=== PATIENT | male | born 2005 | race Caucasian/White ===

== ENCOUNTER 2025-03-31 15:39 | Emergency (ER) | payer MEDICAID, OTHER, SELFPAY ==
[~2025-03-31 15:39] MED LIST: Iopamidol 300 61% 100 ML VIAL FS ONE
[2025-03-31] MEDS ORDERED: Ketorolac Tromethamine 30 MG (1 mL) VIAL ONE (16:49)
[2025-03-31 17:30] LABS: ALT (SGPT) 12 U/L (Less than 45); AST (SGOT) 24 U/L (11-34); Albumin 4.8 g/dL (3.1-4.5); Alkaline Phosphatase 87 U/L (40-110); Anion Gap 14 mmol/L (10-20); BUN (Urea Nitrogen) 12 mg/dL (8.9-20.6); Bilirubin, Total 1.1 mg/dL (0.3-1.2); Calc. Creatinine Clearance 0 mL/min (70-130); Calcium 9.6 mg/dL (7.8-10.44); Carbon Dioxide 31 mmol/L (22-29); Chloride 100 mmol/L (98-107); Globulin 2.7 g/dL (2.4-3.5); Glucose 93 mg/dL (70-105); Potassium 4.0 mmol/L (3.5-5.1); Sodium 141 mmol/L (136-145)
[2025-03-31 17:33] LABS: #Basophils 0.03 10x3/uL (0.0-0.2); #Eosinophils 0.09 10x3/uL (0.0-0.5); #Monocytes 0.75 10x3/uL (0.0-1.1); #Neutrophils 4.56 10x3/uL (1.5-8.4); %Basophils 0.4 % (0.0-2.0); %Eosinophils 1.1 % (0.0-6.0); %Lymphocytes 30.4 % (18.0-47.0); %Monocytes 9.6 % (0.0-10.0); %Neutrophils 58.2 % (40.0-75.0); Hematocrit 45.9 % (38.8-50.0); Hemoglobin 16.6 g/dL (13.5-17.5); Mean Corpuscular Hemoglobin 31.0 pg (27.0-33.0); Mean Corpuscular Volume 85.6 fL (81.2-95.1); Platelet Count 212 10x3/uL (150-450); Red Blood Cell (RBC) Count 5.36 10x6/uL (4.32-5.72); White Blood Cell (WBC) Count 7.83 10x3/uL (3.5-10.5)
[2025-03-31] MEDS ORDERED: Clindamycin/D5W 900 MG in Premix 1 BAG IVPB SCH (18:15)
== END 2025-03-31 19:06 | disposition home or self-care (01) ==
LOC: CSHERS 15:39
DX: K04.7 Periapical abscess without sinus (principal); Z87.891 Personal history of nicotine dependence; Z55.6 Problems related to health literacy
CPT/HCPCS: 70491; 80053; 83605; 85025; 96374; 96375; J1885; J3490; Q9967

== ENCOUNTER 2025-04-01 15:22 | Emergency (ER) | payer OTHER ==
[2025-04-01] MEDS ORDERED: Dexamethasone 10 MG/ML VIAL ONE (15:44)
[2025-04-01] MEDS ORDERED: Clindamycin 150 MG CAP ONE (15:45)
[2025-04-01] MEDS ORDERED: Boostrix 0.5 ML (Tdap) VIAL (>/=7 yrs of age) ONE (15:45)
[2025-04-01] MEDS ORDERED: Ketorolac Tromethamine 30 MG (1 mL) VIAL ONE (15:45)
[2025-04-01] MEDS ORDERED: Lidocaine Viscous Sol 2% 15 ml UD Cup ONE (15:45)
== END 2025-04-01 18:46 ==
LOC: CSHERS 15:22
DX: K04.7 Periapical abscess without sinus (principal); F17.290 Nicotine dependence, other tobacco product, uncomplicated
CPT/HCPCS: 41800; 90471; 90715; 96372; J1100; J1885

== ENCOUNTER 2025-05-04 22:47 | Emergency (ER) | payer BC, OTHER | END 2025-05-05 07:46 | disposition home or self-care (01) | LOC: CSHERS 22:47 | DX: Z00.00 Encounter for general adult medical examination without abnormal findings (principal); F17.290 Nicotine dependence, other tobacco product, uncomplicated | CPT/HCPCS: 99283 ==